=== PATIENT | female | born 1960 | race African-American/Black ===

== ENCOUNTER → 2016-11-20 | Outpatient (CLI) | payer BC ==
--- NOTE | ~2016-11-20 | BD1 ---
[facility] A Service of [facility] & [facility] RADIOLOGY TEXT RESULTS PATIENT: LUCHO JUNE LOCATION: [facility] : 56 UNIT #: [id number] AGE: [address]: Jacinta Hale MD SEX: F ORDER DR: [id number] [facility] [address] [place], [place] [address] [id number] O MR#: [id number] Acc #: [id number] NAME: LUCHO JUNE : 1960 SEX: F STUDY DATE/TIME: 11/20/2016 13:13 UNIT: [facility] ROOM: STUDY DESCRIPTION: BD Dexa Bone Dens 1+ Site Attending Physician: Jacinta Hale M.D. Ordering Physician: Jacinta Hale M.D. Primary Care Physician: Jacinta Hale M.D. MEDICAL IMAGING REPORT This report is preliminary unless electronic signature is present EXAM DXA scan 11/20/2016 HISTORY Status post menopause with no hormone replacement therapy. Osteopenia. Hysterectomy at age 38 with removal of 1 ovary. Family history of breast carcinoma in sister. FINDINGS Bone mineral density in the lumbar spine from L1-L4 is 0.899 g/cm2 which is 1.3 standard deviations below the mean when compared to the young adult reference population which is characteristic of osteopenia. This is 0.9 standard deviations below the mean when compared to the age-matched population. Bone mineral density in the left femoral neck was 0.926 g/cm2 which is 0.7 standard deviations above the mean when compared to the young adult reference population which is within the range of normal. This is 0.8 standard deviations above the mean when compared to the age-matched population. IMPRESSION Bone mineral density in the lumbar spine characteristic of osteopenia and within the left hip within the range of normal. Dictated by... Aidan Quezada M.D. THIS IS AN ELECTRONICALLY VERIFIED REPORT Aidan Quezada M.D. at 11/21/2016 7:47 AM BUTCH/belen TD: 11/20/2016 15:16 JOB #: [id number] [facility] A Service of [facility] & [facility] RADIOLOGY TEXT RESULTS PATIENT: LUCHO JUNE LOCATION: [facility] : 56 UNIT #: [id number] AGE: [address]: Jacinta Hale MD SEX: F ORDER DR: MEDICAL IMAGING REPORT Page 1 of 1 COPY
--- NOTE | ~2016-11-20 | MY11 ---
[facility] A Service of [facility] & [facility] RADIOLOGY TEXT RESULTS PATIENT: LUCHO JUNE LOCATION: [facility] : 56 UNIT #: [id number] AGE: [address]: Jacinta Hale MD SEX: F ORDER DR: [id number] [facility] [address] [place], [place] [address] [id number] O MR#: [id number] Acc #: [id number] NAME: LUCHO JUNE : 1960 SEX: F STUDY DATE/TIME: 11/20/2016 12:57 UNIT: [facility] ROOM: STUDY DESCRIPTION: MY Mammogram Screening Dig Alessio Attending Physician: Jacinta Hale M.D. Ordering Physician: Jacinta Hale M.D. Primary Care Physician: Jacinta Hale M.D. MEDICAL IMAGING REPORT This report is preliminary unless electronic signature is present EXAM Digital screening mammogram, 11/20/2016, [facility]. HISTORY 56-year-old woman positive family history, sister age 40. Prior reduction mammoplasties 2005. Annual screen. COMPARISON 07/12/2013, 07/22/2014, 09/25/2015 [facility]. FINDINGS Digital imaging of each breast was completed utilizing a two-view examination of each breast in craniocaudal and mediolateral-oblique projections. Review and interpretation of digital mammograms include a second review in conjunction with FDA-approved CAD device. There is a normal parenchymal presentation bilaterally consistent with the patient's age. There are no breast masses imaged and no parenchymal asymmetry is visualized. There are no suspicious microcalcifications and I see no focal architectural disturbance. IMPRESSION Negative screening digital mammogram. One-year followup recommended. Patients over the age of 40 are entered into a reminder system with target due date for the next mammogram. A result letter will also be sent to the patient. BIRADS: 1 Negative ADDENDUM The breast parenchyma is fatty replaced. STAT * RESULT STS. [facility] A Service of [facility] & [facility] RADIOLOGY TEXT RESULTS PATIENT: LUCHO JUNE LOCATION: [facility] : 56 UNIT #: [id number] AGE: [address]: Jacinta Hale MD SEX: F ORDER DR: Dictated by... Armando Todd M.D. THIS IS AN ELECTRONICALLY VERIFIED REPORT Armando Todd M.D. at 11/27/2016 2:01 PM GAVIOTA/sanam TD: 11/27/2016 11:54 JOB #: [id number] MEDICAL IMAGING REPORT Page 1 of 1 COPY
== END | disposition home or self-care (01) ==
LOC: CWCC 12:45
DX: Z12.31 Encounter for screening mammogram for malignant neoplasm of breast (principal); M85.9 Disorder of bone density and structure, unspecified; Z78.0 Asymptomatic menopausal state; M85.80 Other specified disorders of bone density and structure, unspecified site; Z80.3 Family history of malignant neoplasm of breast; R92.8 Other abnormal and inconclusive findings on diagnostic imaging of breast; M85.88 Other specified disorders of bone density and structure, other site
CPT/HCPCS: 77080; G0202